=== PATIENT | male | born 2000 | race Asian ===

== ENCOUNTER 2022-01-06 07:47 | Day surgery (SDC) | payer OTHER ==
[2022-01-06] MEDS ORDERED: Ringers Lactate 1,000 ML IV ONE (07:56)
[2022-01-06] MEDS ORDERED: BUPIVACA 0.5%/EPI 0.0005%/PF 30 ML VIAL ONE (09:53)
[2022-01-06] MEDS ORDERED: LIDOCAINE 1% MPF 5 ML VIAL ONE (09:56)
[2022-01-06] MEDS ORDERED: MIDAZOLAM HCL 2 MG/2 ML INJ ONE (09:56)
[2022-01-06] MEDS ORDERED: FENTANYL CITR 100 MCG/2 ML ONE (09:56)
[2022-01-06] MEDS ORDERED: propofoL 200 MG/20 ML VIAL IV ONE (09:56)
[2022-01-06] MEDS ORDERED: ROCURONIUM 50 MG/5 ML VIAL IV ONE (09:56)
[2022-01-06] MEDS ORDERED: dexAMETHasone 10 MG/ML VIAL ONE (09:56)
--- NOTE | 2022-01-06 10:59 | P.OP ---
Date of Service: 01/06/22 Preoperative diagnosis: [Tonsil hypertrophy,] [Recurrent acute tonsillitis,] [Chronic tonsillitis,] Postoperative diagnosis: [Same] Procedure: Tonsillectomy Surgeon: Breonna Parson MD Mold Inspector: None Anesthesia: General via endotracheal tube IV fluids: 450 ml crystalloid Estimated blood loss: Minimal, less than 5 mL Specimen: [bilateral tonsils] Findings: Enlarged tonsils with deep crypts and superior submucosal component Implants: None Indication: patient with persistent symptoms and findings in spite of good med ical management. Details of operation: The patient was brought to the operating room and placed under general anesthesia via oral endotracheal tube. The head of bed was turned 90 degrees. A shoulder roll was placed and the neck was extended. A head drape was applied. The McIvor mouthgag was placed and suspended from the Dempsey stand. The oxygen concentration was confirmed with the anesthesiologist and was less than 40%. Weight-based dexamethasone was administered by the anesthesiologist. The soft palate was palpated and there was no submucous cleft. A red rubber catheter was placed in the nose and the tip withdrawn through the mouth and secured to the head drape for retraction of the soft palate. The tonsils were noted to be large. The left tonsil was grasped with a straight Allis clamp. The Bovie electrocautery was used to incise the mucosa over the anterior pillar and identified the tonsillar capsule. The tonsil was dissected using cautery and blunt dissection until free from soft tissue attachments. A tonsil ball was placed to aid in hemostasis. The right tonsil was removed in a similar manner. The tonsillar fossa's were injected with 0.5% Marcaine with epinephrine; a total of 2.5 milliliters was used. The oropharynx was irrigated with cold saline. After suctioning, a Pelham sump orogastric tube was passed for decompression of the stomach. The red rubber catheter was removed and used to suction the oropharynx, nasopharynx, and nasal cavities. The McIvor mouthgag was removed. There was no evidence of injury to the teeth, lips, or tongue. The mandible was mobile. The patient was then awakened from anesthesia and extubated in the operating room, taken to the recovery room in stable condition. Disposition: The patient will be discharged home later today in the care of their family with written postoperative instructions and appropriate pain medications. They will follow-up in Dr. Parson's office in approximately 1 month. They are instructed to contact Dr. Parson's office for any bleeding or other concerns.
[2022-01-06] MEDS ORDERED: MORPHINE 4 MG/ML SYR ONE (11:06)
[2022-01-06] MEDS: HYDROMORPHONE HCL 1 MG/ML INJ ONE ×2 (11:11→11:17)
[2022-01-06] MEDS ORDERED: HYDROCOD 2.5mg-ACETAMIN 108mg/5mL Soln ONE (12:11)
[2022-01-06 12:26] VITALS: BP 139/70; TEMP 97.8; O2SAT 99
== END 2022-01-06 12:45 | disposition home or self-care (01) ==
LOC: OR 07:47
PROVIDERS: ATTEND Otolaryngology
PROC: 0CTQXZZ Resection of Adenoids, External Approach (ICD-10-PCS; 2022-01-06)
PROC: 0CTPXZZ Resection of Tonsils, External Approach (ICD-10-PCS; principal; 2022-01-06 09:45)
DX: J35.01 Chronic tonsillitis (principal); Z20.822 Contact with and (suspected) exposure to COVID-19
CPT/HCPCS: 88304; 42821; U0003; J2704; J2250; J3010; J1100; J1170; J7120

== ENCOUNTER 2022-01-09 02:33 | Emergency (ER) | payer OTHER ==
--- OUTSIDE RECORDS SUMMARY | 2022-01-09 02:35 | XMS REPORT | Continuity of Care Document ---
:2000 Author Organization [facility] t Address [address] [place] [address] Care Team Providers Name Role Phone DR VARUN Attending Clinician Unavailable DR VARUN Admitting Clinician Unavailable Payers Payer Name Policy Type Policy Number Effective Date Expiration Date Kim Silva [id number] 2021 00:00:00 Problems This patient has no known problems. Allergies, Adverse Reactions, Alerts Allergy Allergy Status Severity Reaction(s) Onset Inactive Treating Comm ents Source Name Type Date Date Clinician Amoxicil DA Active Unknown [facility] Medications This patient has no known medications. Vital Signs Vital Name Observation Time Observation Value Comments Source Weight 2021-11-24 05:42:00 80.83 KG Height 2021-11-22 17:13:00 182.88 CM Weight 2021-11-22 17:13:00 82.55 KG Procedures Procedure Date / Time Performed Performing Clinician [facility] e INTRO ANEST AGENT 2021-11-24 00:00:00 Hector Rendon dical SPINAL CANAL PERQ Center INTRO AIF SP CANAL 2021-11-24 00:00:00 Hector Mcnamara edical PERQ APPROACH Center Encounters Start End Encounter Admission Attending Care Care Encounter Source Date/Time Date/Time Type Type Clinicians Facility Department ID 2021-08-05 Outpatient [facility] [id number] [place] 18:33:03 [facility] 2021-11-24 2021-11-24 Outpatient MANUEL GARCÍA [facility] [id number] Hector 05:22:00 07:27:00 [facility] 2021-11-10 2021-11-10 Outpatient C VARUN [facility] [id number] 11:31:00 23:59:00 [facility] 2021-09-16 2021-09-16 Outpatient C VARUN [facility] [id number] 13:03:00 23:59:00 [facility] Results Test Description Test Time Test Comments Results Result [facility] e Comments MRI SPINE LUMBAR 2021-11-10 W/O CONTRAST 14:45:12 [facility] 2000 Sex: M EX AM: MRI LUMBAR SPINE WITHOUT CONTRASTINDICATION: Degeneration of lumbar intervertebral disc; Lumbar radiculopathyCOMPARIS ON: None availableTECHNIQUE: Multiplanar, multisequence noncontrast MR imaging of the lumbar spine. IV contrast: None. FINDINGS: There are 5 nonrib-bearing lumbar vertebra. The vertebral bodies are normal in height, alignment and signal intensity. The facet joints and spinous processes are normal in alignment. There is mild disc height loss at L5-S1. The the remaining intervertebral disc heights are normal.The conus medullaris terminates at T12 and is normal in signal intensity and caliber. The cauda equina is normal.The posterior paraspinal soft tissues are normal. The imaged portion of the abdomen is unremarkable.INDIVIDU AL LEVELS:L1-L2: No spinal canal or neuroforaminal stenosis.L2-L3: No spinal canal or neuroforaminal stenosis.L3-L4: No spinal canal or neuroforaminal stenosis.L4-L5: No spinal canal or neuroforaminal stenosis.L5-S1: Left paracentral disc protrusion measuring 3 x 14 mm. There is mild effacement of the left lateral recess. No significant spinal canal stenosis. Mild left neuroforaminal stenosis.IMPRESSION: Mild discogenic disease at L5-S1 with a left paracentral disc protrusion causing mild effacement of the left lateral recess. Mild left neuroforaminal stenosis at L5-S1.LOCATION: [id number] signed by: Jessica Cartwright MD 11/10/2021 2:45 PM CDT
[2022-01-09] MEDS ORDERED: ONDANSETRON 4 MG/2 ML VIAL ONE (03:05)
[2022-01-09] MEDS ORDERED: NA CHLORIDE 0.9% 1,000 ML ONE (03:06)
[2022-01-09 03:18] LABS: Absolute Lymphocytes (CBC) 1.9 K/uL (0.7-4.9); Hematocrit 43.1 % (39.6-49.0); Lymphocytes % 22.7 % (15.3-44.8); RBC Red Blood Cell Count 5.04 M/uL (4.33-5.43)
[2022-01-09 03:24] LABS: Potassium 3.5 mmol/L (3.5-5.1)
--- NOTE | 2022-01-09 04:16 | EDPHYS ---
Physician Documentation [facility] Name: Curt Craven Age: 21 yrs Sex: Male : 2000 Arrival Date: 01/09/2022 Time: 02:38 Bed 5 Private MD: ED Physician Butch Lee HPI: 01/09 03:05 This 21 yrs old Male presents to ER via Ambulatory with complaints of Vomiting, rn Headache, Dizziness. 03:05 The patient presents to the emergency department with nausea, vomiting. Onset: The rn symptoms/episode began/occurred last night. Possible causes: unknown. The symptoms are aggravated by nothing. The symptoms are alleviated by nothing. Associated signs and symptoms: Pertinent positives: nausea, vomiting, Pertinent negatives: abdominal pain, constipation, diarrhea, dysuria, fever, GI bleeding, hematuria. Severity of symptoms: At their worst the symptoms were moderate in the emergency department the symptoms have improved. The patient has not experienced similar symptoms in the past. The patient has been recently seen by a physician:. Pt 2-3 days post op from tonsillectomy, was on abx prior to surgery, tested neg for COVID 2 days prior, was doing ok, prescribed hydrocodone, then started throwing up last night. Threw up 3 times. NO fever. Assoc with headache, 6/10, no hx of headaches. No famhx of aneurysm or brain cancer. No trauma. No focal neuro complaint. No abdominal pain. No diarrhea.. Historical: - Allergies: 02:51 Amoxicillin; as6 - Home Meds: 02:51 Lexapro Oral [Active]; Adderall XR Oral [Active]; as6 - PSHx: 02:51 Tonsillectomy; as6 - Immunization history:: Adult Immunizations up to date. - Social history:: Smoking status: unknown. - Family history:: not pertinent. - Hospitalizations: : No recent hospitalization is reported. ROS: 03:27 Constitutional: Negative for fever, chills, and weight loss, Eyes: Negative for injury, rn pain, redness, and discharge, Neck: Negative for injury, pain, and swelling, Cardiovascular: Negative for chest pain, palpitations, and edema, Respiratory: Negative for shortness of breath, cough, wheezing, and pleuritic chest pain, Abdomen/GI: Negative for abdominal pain, diarrhea, and constipation, Back: Negative for injury and pain, MS/Extremity: Negative for injury and deformity, Skin: Negative for injury, rash, and discoloration, Neuro: Negative for weakness, numbness, tingling, and seizure. Exam: 03:27 Constitutional: This is a well developed, well nourished patient who is awake, alert, rn and in no acute distress. Ambulatory to room without distress or assistance. Actively drinking water while walking to room. Head/Face: Normocephalic, atraumatic. Eyes: Pupils equal round and reactive to light, extra-ocular motions intact. Lids and lashes normal. Conjunctiva and sclera are non-icteric and not injected. Cornea within normal limits. Periorbital areas with no swelling, redness, or edema. ENT: MMM, + expected post-tonsillectomy changes of pharynx, no bleeding or significant swelling. Neck: Trachea midline, no thyromegaly or masses palpated, and no cervical lymphadenopathy. Supple, full range of motion without nuchal rigidity, or vertebral point tenderness. No Meningismus. Cardiovascular: Regular rate and rhythm. No pulse deficits. Respiratory: No increased work of breathing, no retractions or nasal flaring. Abdomen/GI: Soft, non-tender Skin: Warm, dry, no rash MS/ Extremity: Pulses equal, no cyanosis. Neuro: Awake and alert, GCS 15 Vital Signs: 02:48 BP 133 / 80; Pulse 62; Resp 18 S; Temp 97.6(O); Pulse Ox 99% on R/A; Weight 81.65 kg as6 (R); Height 6 ft. 0 in. (182.88 cm) (R); Pain 6/10; 04:07 BP 113 / 67; Pulse 64; Resp 18 S; Pulse Ox 97% on R/A; as6 02:48 Body Mass Index 24.41 (81.65 kg, 182.88 cm) as6 MDM: 02:39 Patient medically screened. rn 04:13 Differential diagnosis: medication reaction, anesthesia reaction, migraine, headache. rn Data reviewed: vital signs, nurses notes, lab test result(s), radiologic studies, CT scan, and as a result, I will discharge patient. Counseling: I had a detailed discussion with the patient and/or guardian regarding: the historical points, exam findings, and any diagnostic results supporting the discharge/admit diagnosis, lab results, radiology results, the need for outpatient follow up, to return to the emergency department if symptoms worsen or persist or if there are any questions or concerns that arise at home. Response to treatment: the patient's symptoms have markedly improved after treatment, and as a result, I will discharge patient. Special discussion: I discussed with the patient/guardian in detail that at this point there is no indication for admission to the hospital. It is understood, however, that if the symptoms persist or worsen the patient needs to return immediately for re-evaluation. ED course: CT head without acute findings, normal cbc and bmp, afebrile, normal vitals. Improved symptoms. Will dc home with f/u as needed.. 01/09 02:58 Order name: CBC with Diff; Complete Time: 03:38 rn 01/09 02:58 Order name: Basic Metabolic Panel; Complete Time: 03:24 rn 01/09 02:58 Order name: CT Head Brain wo Cont rn 01/09 02:58 Order name: IV Start; Complete Time: 02:59 rn Administered Medications: 03:03 Drug: Zofran (Ondansetron) 4 mg Route: IVP; Site: right antecubital; as6 04:28 Follow up: Response: No adverse reaction as6 03:04 Drug: NS 0.9% 1000 ml Route: IV; Rate: 1000 ml; Site: right antecubital; as6 04:28 Follow up: Response: No adverse reaction; IV Status: Completed infusion; IV Intake: as6 1000ml 04:25 Drug: Ketorolac 30 mg Route: IVP; Site: right antecubital; as6 04:53 Follow up: Response: No adverse reaction as6 Disposition Summary: 01/09/22 04:15 Discharge Ordered Location: Home rn Problem: new rn Symptoms: have improved rn Condition: Stable rn Diagnosis - Headache rn - Vomiting rn Followup: rn - With: Beronna Parson MD - When: As needed - Reason: Recheck today's complaints, Re-evaluation by your physician Discharge Instructions: - Discharge Summary Sheet rn - General Headache Without Cause rn - Nausea and Vomiting, Adult rn Forms: - Medication Reconciliation Form rn - Thank You Letter rn - Antibiotic churner - Prescription Opioid Use rn Prescriptions: - ondansetron 4 mg Oral tablet,disintegrating - place 1 tablet by TRANSLINGUAL route every 8-10 hours As needed; 10 tablet; rn Refills: 0, Product Selection Permitted Signatures: Dispatcher [employer] Butch Domingo MD MD rn Slawson, Ashby, RN RN as6 Mariah Kumar PA PA sb3
--- NOTE | 2022-01-09 04:16 | ER ---
Nurse's Notes [facility] Name: Curt Craven Age: 21 yrs Sex: Male : 2000 Arrival Date: 01/09/2022 Time: 02:38 Bed 5 Private MD: Diagnosis: Headache;Vomiting Presentation: 01/09 02:48 Chief complaint: Patient states: reports headache that started 01/08 1900 and as6 nausea/vomiting that started at 01/08 2300 Parent and/or Guardian states: "He had his tonsils taken out of Sunday and around 11 he started throwing up, we called the doctor and they said to come here". Coronavirus screen: At this time, the client does not indicate any symptoms associated with coronavirus-19. Ebola Screen: No symptoms or risks identified at this time. Initial Sepsis Screen: Does the patient meet any 2 criteria? No. Patient's initial sepsis screen is negative. Does the patient have a suspected source of infection? No. Patient's initial sepsis screen is negative. Risk Assessment: Do you want to hurt yourself or someone else? Patient reports no desire to harm self or others. Onset of symptoms was January 08, 2022. 02:48 Method Of Arrival: Ambulatory as6 02:48 Acuity: HOME 3 as6 Historical: - Allergies: 02:51 Amoxicillin; as6 - Home Meds: 02:51 Lexapro Oral [Active]; Adderall XR Oral [Active]; as6 - PSHx: 02:51 Tonsillectomy; as6 - Immunization history:: Adult Immunizations up to date. - Social history:: Smoking status: unknown. - Family history:: not pertinent. - Hospitalizations: : No recent hospitalization is reported. Screenin:52 Abuse screen: Denies threats or abuse. Denies injuries from another. Nutritional as6 screening: No deficits noted. Tuberculosis screening: No symptoms or risk factors identified. Fall Risk None identified. Assessment: 02:53 General: Appears in no apparent distress. slender, Behavior is calm, cooperative, as6 quiet. Pain: Complains of pain in head. Neuro: Pozo Agitation-Sedation Scale (RASS): 0 - Alert and Calm Level of Consciousness is awake, alert, obeys commands, Oriented to person, place, time, situation, Reports dizziness, headache. Cardiovascular: JVD is absent Patient's skin is warm and dry. Respiratory: Respiratory effort is even, unlabored, Respiratory pattern is regular, symmetrical. GI: Pt is actively vomiting clear fluid, Reports nausea, vomiting. 04:07 Reassessment: Patient appears in no apparent distress at this time. as6 Vital Signs: 02:48 BP 133 / 80; Pulse 62; Resp 18 S; Temp 97.6(O); Pulse Ox 99% on R/A; Weight 81.65 kg as6 (R); Height 6 ft. 0 in. (182.88 cm) (R); Pain 6/10; 04:07 BP 113 / 67; Pulse 64; Resp 18 S; Pulse Ox 97% on R/A; as6 02:48 Body Mass Index 24.41 (81.65 kg, 182.88 cm) as6 ED Course: 02:38 Patient arrived in ED. ja2 02:39 Butch Lee MD is Attending Physician. rn 02:48 Tab Solomon RN is Primary Nurse. as6 02:51 Triage completed. as6 02:52 Arm band placed on. as6 02:52 Bed in low position. Call light in reach. Side rails up X2. Adult w/ patient. Pulse ox as6 on. NIBP on. 02:56 Inserted saline lock: 20 gauge in right antecubital area, using aseptic technique. kd3 Blood collected. 03:19 CT Head Brain wo Cont In Process Unspecified. EDMS 04:14 Breonna Parson MD is Referral Physician. rn 04:57 No provider procedures requiring assistance completed. IV discontinued, intact, as6 bleeding controlled, No redness/swelling at site. Pressure dressing applied. Administered Medications: 03:03 Drug: Zofran (Ondansetron) 4 mg Route: IVP; Site: right antecubital; as6 04:28 Follow up: Response: No adverse reaction as6 03:04 Drug: NS 0.9% 1000 ml Route: IV; Rate: 1000 ml; Site: right antecubital; as6 04:28 Follow up: Response: No adverse reaction; IV Status: Completed infusion; IV Intake: as6 1000ml 04:25 Drug: Ketorolac 30 mg Route: IVP; Site: right antecubital; as6 04:53 Follow up: Response: No adverse reaction as6 Medication: 02:53 VIS not applicable for this client. as6 Intake: 04:28 IV: 1000ml; Total: 1000ml. as6 Outcome: 04:15 Discharge ordered by . rn 04:57 Discharged to home ambulatory, with family. as6 04:57 Condition: stable 04:57 Discharge instructions given to patient, family, Instructed on discharge instructions, follow up and referral plans. medication usage, Demonstrated understanding of instructions, follow-up care, medications, Prescriptions given X 1. 04:58 Patient left the ED. as6 Signatures: Dispatcher [employer] EDMS Butch Lee MD MD rn Alexander, Tab Franks RN RN as6 Freda Deleon RN RN kd3
[2022-01-09] MEDS ORDERED: KETOROLAC 30 MG/ML INJ ONE (04:29)
[2022-01-09 05:06] VITALS: TEMP 97.6
[2022-01-09 05:08] VITALS: BP 113/67; O2SAT 97
--- NOTE | 2022-01-09 13:29 | RAD REPORT ---
EXAM DESCRIPTION: CT - Head Brain Wo Cont - 01/09/2022 6:31 am CLINICAL HISTORY: The patient is 21 years old and is Male; Headache, new or worsening, positional TECHNIQUE: Axial computed tomography images of the head/brain without intravenous contrast. Sagitt al and coronal reformatted images were created and reviewed. This CT exam was performed using one o r more of the following dose reduction techniques: automated exposure control, adjustment of the mA and/or kV according to patient size, and/or use of iterative reconstruction technique. COMPARISON: No relevant prior studies available. FINDINGS: Brain: Unremarkable. No hemorrhage. No significant white matter disease. No edema. Ventricles: Unremarkable. No ventriculomegaly. Bones/joints: Unremarkable. No acute fracture. Soft tissues: Unremarkable. Sinuses: Unremarkable as visualized. Mastoid air cells: Unremarkable as visualized. No mastoid effusion. IMPRESSION: No acute intracranial abnormality. Electronically signed by: Otto Davis MD 01/09/2022 3:51 AM CDT Due to temporary technical issues with the PACS/Fluency reporting system, reports are being signed by the in house radiologist without review as a courtesy to ensure prompt reporting. The interpreting r adiologist is fully responsible for the content of the report.
== END 2022-01-09 04:58 | disposition home or self-care (01) ==
LOC: ER 02:33
DX: R51.9 Headache, unspecified (principal); R11.2 Nausea with vomiting, unspecified; Z88.1 Allergy status to other antibiotic agents; Z20.822 Contact with and (suspected) exposure to COVID-19
CPT/HCPCS: 85025; 80048; 36415; 70450; J7030; J2405; 96361; 96374; 96375; 99284